=== PATIENT | female | born 1980 | race American Indian/Alaskan Native ===

== ENCOUNTER 2018-01-29 08:50 | Outpatient (CLI) | payer BC ==
--- NOTE | 2018-01-29 20:43 | XRay Report ---
FINAL REPORT EXAM: XR KNEE 4+V RT HISTORY: RIGHT KNEE PAIN TECHNIQUE: Right knee 4 views PRIORS: None. FINDINGS: No fracture is identified. No dislocation seen. No evidence of joint effusion. Patella demonstrates normal positioning. No acute bony abnormality identified. IMPRESSION: Negative knee series
== END 2018-01-29 08:51 | disposition home or self-care (01) ==
LOC: SPVIMAG 08:50
PROVIDERS: ATTEND Orthopaedic Surgery Sports Medicine
DX: M25.561 Pain in right knee (principal)

== ENCOUNTER 2019-01-17 07:49 | Observation (INO) | payer BC, OTHER ==
[2019-01-14 11:24] LABS: Basophils % (Auto) 0.9 % (0.0-1.8); Eosinophils # (Auto) 0.1 K/mm3 (0.0-0.4); Eosinophils % (Auto) 1.9 % (0.0-4.3); Hematocrit 37.8 % (30.3-42.9); Hemoglobin 12.4 gm/dl (10.1-14.3); Lymphocytes # (Auto) 1.8 K/mm3 (1.2-5.4); Lymphocytes % (Auto) 42.6 % (13.4-35.0); Mean Corpuscular HGB Conc 33 % (30-34); Mean Corpuscular Volume 84 fl (79-97); Monocytes # (Auto) 0.3 K/mm3 (0.0-0.8); Monocytes % (Auto) 8.2 % (0.0-7.3); Platelet Count 258 K/mm3 (140-440); Red Cell Distribution Width 13.7 % (13.2-15.2)
--- NOTE | 2019-01-14 12:28 | Anesthesia Consultation ---
Anesthesia Consult and Med Hx Date of service: 01/14/19 - Airway Anesthetic Teeth Evaluation: Good - Pulmonary Exam CTA: Yes - Cardiac Exam Cardiac Exam: RRR - Pre-Operative Health Status ASA Pre-Surgery Classification: ASA2 Proposed Anesthetic Plan: General Nerve Block: discussed TAP block - Pulmonary Hx Smoking: No Hx Asthma: No Hx Respiratory Symptoms: No SOB: No COPD: No Hx Sleep Apnea: Yes (occasional use of CPAP ) - Cardiovascular System Hx Hypertension: No Hx Coronary Artery Disease: No Hx Peripheral Vascular Disease: No - Central Nervous System Hx Neuromuscular Disorder: No Hx Seizures: No Hx Back Pain: Yes Hx Psychiatric Problems: No - Gastrointestinal Hx Gastroesophageal Reflux Disease: Yes (medication controlled ) - Endocrine Hx Insulin Dependent Diabetes: No Hx Non-Insulin Dependent Diabetes: No Hx Thyroid Disease: No - Hematic Hx Anemia: Yes (Not in past year) - Other Systems Hx Cancer: No - Additional Comments Anesthesia Medical History Comments: will benefit from glidescope in room for [facility]
--- NOTE | 2019-01-16 16:09 | History and Physical Report ---
History of Present Illness Date of examination: 01/16/19 Date of admission: 01/17/2019 Chief complaint: heavy menses History of present illness: 38y/o with dysfunctional uterine bleeding. Pelvic ultrasound demonstrated an enlarged uterus consistent with adenomyosis. The patient also reports worsening pelvic pain with her menses. She is s/p an endometrial abl ation that has not resolved her symptoms. Past History Past Medical History: other (morbid obesity) Past Surgical History: section, other (Endometrial ablation; BTL) Social history: single - Obstetrical History : 3 Para: 3 Hx # Term Pregnancies: 3 Number of Pregnancies: 0 Spontaneous Abortions: 0 Induced : 0 Number of Living Children: 3 Medications and Allergies Allergies Allergy/AdvReac Type Severity Reaction Status Date / Time No Known Allergies Allergy Unverified 01/07/19 15:45 Home Medications Medication Instructions Recorded Confirmed Last Taken Type Acetaminophen/Codeine [Tylenol 1 tab PO Q6H PRN 01/07/19 01/07/19 Unknown History /Codeine # 3 tab] methOCARBAMOL [Robaxin TAB] 500 mg PO Q6H PRN 01/07/19 01/07/19 Unknown History Active Meds: Active Medications Celecoxib (Celebrex) 200 mg PO PREOP NR Stop: 01/17/19 23:01 Fentanyl (Sublimaze) 100 mcg IV ONCE PRN PRN Reason: sedation for nerve block Gabapentin (Neurontin) 300 mg PO PREOP NR Stop: 01/17/19 23:00 Lactated Ringer's (Lactated Ringers) 1,000 mls @ 100 mls/hr IV DIRECT GINA Midazolam HCl (Versed) 2 mg IV PREOP NR Stop: 01/17/19 23:00 Review of Systems All systems: negative Genitourinary: vaginal bleeding, pelvic pain - Vital Signs Vital signs: Vital Signs Temp Pulse Resp BP Pulse Ox 97.1 F L 76 20 122/77 99 01/14/19 10:55 01/14/19 10:55 01/14/19 10:55 01/14/19 10:55 01/14/19 10:55 Temp Pulse Resp BP Pulse Ox 97.1 F L 76 20 122/77 99 01/14/19 10:55 01/14/19 10:55 01/14/19 10:55 01/14/19 10:55 01/14/19 10:55 - Physical Exam Breasts: Positive: deferred Cardiovascular: Regular rate Lungs: Positive: Clear to auscultation Abdomen: Positive: other (obese) Results Result Diagrams: 01/14/19 11:18 All other labs normal. Assessment and Plan - Patient Problems (1) Dysmenorrhea Status: Acute Plan to address problem: scheduled for a robotic hysterectomy (2) Abnormal uterine bleeding Status: Acute (3) Morbid obesity Status: Acute
[~2019-01-17 07:49] MED LIST: ANCEF/STERILE WATER 2 GM/20 ML 2 GM/20 ML SYRINGE IV NR; LACTATED RINGERS 1,000 ML IV SCH; NEURONTIN PO NR; SUBLIMAZE IV PRN; VERSED IV NR
[2019-01-17] MEDS ORDERED: MARCAINE 0.25% INFILTRATI ONE (08:45)
[2019-01-17] MEDS ORDERED: DECADRON ONE ×2 (08:45→10:19)
[2019-01-17] MEDS ORDERED: ZEMURON IV ONE (09:08)
[2019-01-17] MEDS ORDERED: XYLOCAINE MPF 2% ONE (09:08)
[2019-01-17] MEDS ORDERED: SUBLIMAZE ONE (09:09)
[2019-01-17] MEDS ORDERED: DIPRIVAN 10 MG/ML IV ONE (09:09)
[2019-01-17] MEDS ORDERED: DILAUDID ONE ×2 (09:29→12:39)
--- NOTE | 2019-01-17 09:45 | Anesthesia Day of Surgery ---
Anesthesia Day of Surgery - Day of Surgery Patient Examined: Yes Patient H&P Reviewed: Yes Patient is NPO: Yes
[2019-01-17] MEDS ORDERED: NEOSPORIN GU IR ONE ×2 (10:03→11:08)
[2019-01-17] MEDS ORDERED: ZOFRAN ONE (10:19)
[2019-01-17] MEDS ORDERED: TORADOL ONE (10:19)
[2019-01-17] MEDS ORDERED: BREVIBLOC IV ONE (11:07)
[2019-01-17] MEDS ORDERED: NACL 0.9% IR ONE ×2 (11:09)
[2019-01-17] MEDS ORDERED: NARCAN 0.4 MG/1 ML IV PRN (11:57)
[2019-01-17] MEDS ORDERED: ZOFRAN ODT PO PRN (11:58)
[2019-01-17] MEDS ORDERED: TYLENOL PO PRN (11:58)
[2019-01-17] MEDS ORDERED: AMBIEN PO PRN (11:58)
[2019-01-17] MEDS ORDERED: MORPHINE PCA 30MG/30ML IV SCH (12:00)
[2019-01-17] MEDS ORDERED: ROBINUL ONE (12:06)
[2019-01-17] MEDS ORDERED: BLOXIVERZ ONE (12:06)
--- NOTE | 2019-01-17 12:07 | Operative Report ---
Operative Report Operative Report: Date of surgery: 01/17/2019 Preoperative diagnoses: Dysfunctional uterine bleeding; dysmenorrhea; morbid obesity Postoperative diagnoses: Same as above Procedure: Robotic hysterectomy; bilateral salpingectomy; lysis of adhesions; serosal repair of descending colon Surgeon: Selena Clayton M.D. Medical Data Analyst: Marysol Davis Anesthesia: Gen. endotracheal anesthesia Estimated blood loss: 200 mL Pathology: Uterus, cervix, bilateral tubes Indication: 38-year-old with a history of dysfunctional uterine bleeding with failed medical management. The patient elected to undergo definitive surgical management. Procedure: The patient was taken to the operating room and given general endotracheal anesthesia without complication. She is prepped and draped in a normal sterile fashion. A bivalve speculum was placed in the patient's vagina and a single- tooth tenaculum placed on the anterior lip of the cervix. The uterus was sounded with the uterine sound. A KAI Square uterine manipulator was placed in the bivalve speculum was then removed. Attention was then turned to the patient's abdomen where a millimeter supra umbilical skin incision was then made. A Veress needle was placed and peritoneal entry was verified water-filled syringe. Insufflation of the peritoneal cavity was performed with CO2 gas. The 12 mm trocar was then placed under direct visualization. An additional 8 mm trocar was placed on the patient's left and right lateral side just opposite of the supraumbilical trocar. An additional 5 mm right lateral trocar was then placed as the accessory port. The patient was then placed in steep Trendelenburg. The da Tobias robot was then engaged. A fenestrated forcep was placed in arm 2 and a vessel sealer was placed in arm 1. The surgeon then transferred to the surgical console. General survey reveal evidence of an and evidence of adhesion to the anterior abdominal wall which was lysed with the vessel sealer. The uterus was enlarged with findings of normal tubes and ovaries bilaterally. The mesosalpinx was then isolated on the right. The vessel sealer was used to coagulate the mesosalpinx which was then transected. The tube was transected from the ovary. The tubo-ovarian ligament was then coagulated and transected. The round ligament was then coagulated and transected also. The vesicouterine peritoneum was then entered from the patient's right side. The uterine vessels were then coagulated with the vessel sealer. The vessels were then transected . Attention was then turned to the patient's left side where the tubo-ovarian ligament and mesosalpinx were again isolated coagulated and transected. The vesical peritoneum was then entered from the left and joined in the midline. Peritoneum was reflected off of the lower uterine segment. Uterine vessels were then coagulated and then transected. The blood supply to the uterus was adequately contained, a posterior colpotomy was made. The V care ring was visualized. Posterior colpotomy was created with the monopolar scissors. The incision was continued circumferentially until anterior colpotomy was made. The cervix and uterus were amputated from the vaginal cuff. The uterus was then removed along with the tubes bilaterally through the vagina and a warm laparotomy sponge was placed and maintain the pneumoperitoneum. The vaginal cuff was then closed in a running fashion with V lock suture. Irrigation of the pelvis was performed. A 1cm superficial tear in the serosa of the colon was reapproximated with 3-0 vicryl in a running fashion. Hemoblast was applied to the incision. The supraumbilical 12 mm trocar site was closed with the Rusty Medina device. The skin was then reapproximated with 4-0 Monocryl. The tissue was sent to pathology which included the cervix and uterus. The patient was then successfully extubated. She was then taken to the recovery room in stable condition. All sponge laps and needle counts were correct x2.
[2019-01-17] MEDS: DILAUDID IV PRN ×2 (12:37→12:55)
--- NOTE | 2019-01-17 13:56 | Post Anesthesia Evaluation ---
- Post Anesthesia Evaluation Patient Participated: Yes Airway Patent: Yes Stable Respiratory Function: Yes Nausea/Vomiting: No Temp > 96.8F: Yes Pain Manageable: Yes Adequeate Hydration: Yes Anesthesia Complications: No
[2019-01-17] MEDS: TORADOL IV SCH (17:41)
[2019-01-17] MEDS: D5LR 1,000 ML IV SCH (21:02)
[2019-01-18] MEDS: TORADOL IV SCH ×4 (02:14→17:47)
[2019-01-18] MEDS: D5LR 1,000 ML IV SCH (06:01)
[2019-01-18 06:31] LABS: Hemoglobin 11.4 gm/dl (10.1-14.3)
[2019-01-18] MEDS: PERCOCET 5/325 PO PRN ×3 (10:05→21:42)
[2019-01-18] MEDS: IBUPROFEN PO PRN ×3 (10:05→23:36)
[2019-01-18] MEDS ORDERED: MILK OF MAGNESIA PO PRN (15:39)
--- NOTE | 2019-01-18 15:49 | Progress Note ---
Assessment and Plan POD 1 s/p robotic tlh. Doing fairly. Pt reports ongoing issues with pain control and denies full gi functioning. Will order simthicon and milk of mag to help promote same. Encourage ambulation Subjective - Subjective Date of service: 01/18/19 Interval history: POD 1 s/p robotic tlh. Patient has passed minimal flatus, but has not had bm. Patient reports: appetite normal, voiding normally, flatus, pain poorly controlled Objective - Vital Signs Latest vital signs: Vital Signs Temp Pulse Pulse Resp BP BP Pulse Ox 01/18/19 12:23 98.7 F 89 18 102/53 95 01/18/19 07:49 98.6 F 85 20 101/49 100 01/18/19 05:11 95 H 97/58 100 01/18/19 05:10 99.0 F 89 18 97/58 01/18/19 03:30 16 01/18/19 01:30 16 01/18/19 00:00 98.0 F 20 01/17/19 23:40 99 H 138/70 100 01/17/19 23:30 16 01/17/19 22:00 88 16 01/17/19 20:13 97 H 109/63 100 01/17/19 20:05 98.6 F 20 01/17/19 19:41 16 01/17/19 16:21 97.5 F L 97 H 24 116/70 96 Intake and Output 01/18/19 01/18/19 01/18/19 06:59 14:59 22:59 Intake Total 1240 720 Output Total 900 Balance 340 720 Intake: IV 1000 D5lr 1,000 ml @ 125 mls/ 1000 hr IV DIRECT GINA Rx#: [id number] Oral 240 720 Output: Urine 900 Indwelling Catheter 900 Other: Total, Intake Amount 240 240 Total, Output Amount 900 Voiding Method Indwelling Catheter # Voids Indwelling Catheter 1 - Exam Breasts: Present: deferred Cardiovascular: Present: Regular rate, Normal S1, Normal S2 Lungs: Present: Clear to auscultation, Normal air movement Abdomen: Present: normal appearance, soft Extremities: Present: normal Deep Tendon Reflex Grade: Normal +2
[2019-01-18] MEDS: MYLICON PO PRN ×2 (15:50→21:42)
[2019-01-19] MEDS: PERCOCET 5/325 PO PRN (04:14)
--- NOTE | 2019-01-19 09:00 | Discharge Summary ---
Providers - Providers Date of Admission: 01/17/19 11:58 Date of discharge: 01/19/19 Attending physician: ALAN SCHWARZ Primary care physician: PORTILLO KATZ MD Hospitalization Reason for admission: other Procedure: other Incision: normal, dry, intact Discharge diagnosis: other Condition at discharge: Good Disposition: DC-01 TO HOME OR SELFCARE Plan - Discharge Medications Prescriptions: Docusate Sodium [Colace] 100 mg PO BID PRN #60 capsule PRN Reason: Constipation Ibuprofen [Motrin] 800 mg PO Q8HR PRN #60 tablet PRN Reason: Pain , Severe (7-10) oxyCODONE /ACETAMINOPHEN [Percocet 5/325] 1 tab PO Q6HR PRN #30 tablet PRN Reason: Pain - Provider Discharge Summary Activity: routine, no sex for 6 weeks, no heavy lifting 4 weeks, no strenuous exercise Diet: routine Instructions: routine Additional instructions: [] Smoking cessation referral if applicable(refer to patient education folder for contact #) [] Refer to [facility]'s [facility] Booklet Call your doctor immediately for: * Fever > 100.5 * Heavy vaginal bleeding ( >1 pad per hour) * Severe persistent headache * Shortness of breath * Reddened, hot, painful area to leg or breast * Drainage or odor from incision. * Keep incision clean and dry at all times and follow doctor's instructions regarding bathing/showering - Follow up plan Follow up: PORTILLO KATZ MD [Primary Care Provider] - 7 Days Forms: [facility] Discharge Summary, Discharge Signature Page
[2019-01-19 09:04] VITALS: BP 101/58
== END 2019-01-19 08:15 | disposition home or self-care (01) ==
LOC: OR 07:49 → OB 11:58
PROVIDERS: ADMIT Obstetrics & Gynecology; ATTEND Obstetrics & Gynecology
DX: N93.8 Other specified abnormal uterine and vaginal bleeding (principal); N94.6 Dysmenorrhea, unspecified; E66.2 Morbid (severe) obesity with alveolar hypoventilation; Z98.890 Other specified postprocedural states; Z79.899 Other long term (current) drug therapy
CPT/HCPCS: 36415; 58552; 64450; 84703; 85014; 85018; 85025; 86850; 86900; 86901; 88307; 88341; 88342; 96374; 96375; 96376; A4217; G0378; J0690; J1100; J1170; J1885; J2250; J2270; J2405; J2704; J2710; J3010; J7120; J7121; S2900; Q0162